=== PATIENT | male | born 1985 ===

== ENCOUNTER 2018-12-02 08:02 | Emergency (ER) | payer OTHER ==
[~2018-12-02] VITALS: Ht 177.8 cm; Wt 81.6 kg
[2018-12-02] MEDS ORDERED: ADDERALL 20 MG20 MG (08:11)
[2018-12-02] MEDS ORDERED: TRUVADA 100 MG1 EACH (08:12)
== END 2018-12-02 10:11 | disposition home or self-care (01) ==
LOC: ER 08:02
DX: H57.89 Other specified disorders of eye and adnexa (principal)